=== PATIENT | female | born 1990 | race Caucasian/White ===

== ENCOUNTER 2017-07-30 13:26 | Emergency (ER) | payer OTHER ==
[2017-07-30 13:36] VITALS: BP 126/65; PULSE 84; RESP 16; TEMP 97; O2SAT 100
[2017-07-30] MEDS ORDERED: DiphenhydrAMINE 50 mg/ml Inj IM STA (13:51)
--- NOTE | 2017-07-30 13:53 | ED PDOC ---
HPI: Allergic Reaction Time Seen by Provider: 07/30/17 13:40 Chief Complaint (Nursing): Allergic Reaction Chief Complaint (Provider): Allergic Reaction History Per: Patient History/Exam Limitations: no limitations Onset/Duration Of Symptoms: Hrs (since last night) Current Symptoms Are (Timing): Better Possible Cause: Food Associated Symptoms: Skin Rash, Swelling, Itching, Redness Home/EMS Treatment: Benadryl, Other (Risa) Additional Complaint(s): 27 year old female presents to ED with complaints of a rash since last night and denies any past medical history. Describes rash as diffuse, erythematous, pruritic, and present throughout her body. Notes that she then took Risa, went to sleep, and saw improvement in her rash the next morning. (+) minimal swelling to lower lip. (-) throat swelling, SOB, previous anaphylactic reaction , or fever. Patient states she is currently taking minocycline x10 days for acne and has had no reactions to tetracyclines in the past. Patient further notes that she had peppermint for the first time x15 minutes prior to noticing the rash. Patient notes taking Benadryl 25mg [employer] with added improvement. PCP: None Past Medical History Reviewed: Historical Data, Nursing Documentation, Vital Signs Vital Signs: Last Vital Signs Temp 97.0 F L 07/30/17 13:29 Pulse 84 07/30/17 13:29 Resp 16 07/30/17 13:29 BP 126/65 07/30/17 13:29 Pulse Ox 100 07/30/17 13:29 - Medical History PMH: No Chronic Diseases - Family History Family History: States: No Known Family Hx - Living Arrangements Living Arrangements: With Friends/Others - Social History Drugs: Denies - Home Medications Home Medications: Ambulatory Orders Medication Instructions Recorded predniSONE [Prednisone] 2 tab PO DAILY #8 tab 07/30/17 - Allergies Allergies/Adverse Reactions: Allergies Allergy/AdvReac Type Severity Reaction Status Date / Time No Known Allergies Allergy Verified 07/30/17 13:29 Review of Systems ROS Statement: Except As Marked, All Systems Reviewed And Found Negative Constitutional: Negative for: Fever ENT: Positive for: Other (swelling to lower lip). Negative for: Throat Swelling Respiratory: Negative for: Shortness of Breath Skin: Positive for: Rash Physical Exam - Reviewed Nursing Documentation Reviewed: Yes Vital Signs Reviewed: Yes - Physical Exam Appears: Positive for: Non-toxic, No Acute Distress Skin: Positive for: Warm, Dry, Rash (Scattered mild urticaria with blanching). Negative for: Normal Color ENT: Positive for: Normal ENT Inspection, Other ((+) minimal swelling to right lower lip. (-) no uvular edema) Neck: Positive for: Normal Respiratory: Positive for: Normal Breath Sounds. Negative for: Respiratory Distress Neurologic/Psych: Positive for: Alert, Oriented - ECG O2 Sat by Pulse Oximetry: 100 (RA) Pulse Ox Interpretation: Normal Disposition - Clinical Impression Clinical Impression: Allergic reaction - Patient ED Disposition Is Patient to be Admitted: No - Disposition Referrals: [facility] [Outside] Disposition: Routine/Home Disposition Time: 13:52 Condition: STABLE Additional Instructions: FOLLOW UP WITH [facility] FOR ALLERGY TESTING. Prescriptions: predniSONE [Prednisone] 2 tab PO DAILY #8 tab Instructions: Urticaria (ED) Forms: [employer]ihuishou (Cameroonian) Print Language: KYRGYZ Medical Decision Making Medical Decision Makin Initial impression: urticaria Initial plan: * Benadryl 25mg IM * Prednisone 40mg PO Patient was advised to avoid peppermint. If rash continues, patient advised to stop taking minocycline. Scribe Attestation: Documented by Herminia Gan, acting as a scribe for Memo Treviño PA-C. Provider Scribe Attestation: All medical record entries made by the Scribe were at my direction and personally dictated by me. I have reviewed the chart and agree that the record accurately reflects my personal performance of the history, physical exam, medical decision making, and the department course for this patient. I have also personally directed, reviewed, and agree with the discharge instructions and disposition.
[2017-07-30] MEDS ORDERED: DiphenhydrAMINE 50 mg/ml Inj ONE (14:21)
== END 2017-07-30 15:03 | disposition home or self-care (01) ==
LOC: H.ER 13:26
DX: L50.9 Urticaria, unspecified (principal)
CPT/HCPCS: 96372; 99283; J1200

== ENCOUNTER 2017-08-01 11:48 | Emergency (ER) | payer OTHER ==
[2017-08-01 11:57] VITALS: RESP 18; TEMP 98.3; O2SAT 100
[2017-08-01] MEDS ORDERED: Sodium Chloride 0.9% 1,000 ML IV STA (12:08)
[2017-08-01] MEDS ORDERED: DiphenhydrAMINE 50 mg/ml Inj IVP STA (12:09)
[2017-08-01] MEDS ORDERED: DiphenhydrAMINE 50 mg/ml Inj ONE (12:32)
--- NOTE | 2017-08-01 12:35 | ED PDOC ---
HPI: Allergic Reaction Time Seen by Provider: 08/01/17 11:59 Chief Complaint (Nursing): Allergic Reaction Chief Complaint (Provider): Allergic Reaction History Per: Patient History/Exam Limitations: no limitations Onset/Duration Of Symptoms: Days (x2 weeks) Current Symptoms Are (Timing): Still Present Additional Complaint(s): 27 y/o female presents to the emergency department with a complaint of an itchy rash to the face, arms, legs, abdomen, and torso x2 days. Patient was seen here about 2 days ago and treated with prednisone and Benadryl with temporary improvement with reoccurrence. Denies tightness of the throat or shortness of breath. Past Medical History Reviewed: Historical Data, Nursing Documentation, Vital Signs Vital Signs: Last Vital Signs Temp 98.3 F 08/01/17 11:53 Pulse 109 H 08/01/17 11:53 Resp 18 08/01/17 11:53 BP 106/44 L 08/01/17 11:53 Pulse Ox 100 08/01/17 11:53 - Medical History PMH: No Chronic Diseases - Surgical History Surgical History: No Surg Hx - Family History Family History: States: Unknown Family Hx - Social History Current smoker - smoking cessation education provided: No Alcohol: None Drugs: Denies - Home Medications Home Medications: Ambulatory Orders Medication Instructions Recorded predniSONE [Prednisone] 2 tab PO DAILY #8 tab 07/30/17 Cetirizine HCl [Zyrtec] 10 mg PO DAILY #10 capsule 08/01/17 Famotidine [Pepcid] 20 mg PO Q12 #20 tab 08/01/17 predniSONE [Prednisone] 20 mg PO TID #9 tab 08/01/17 - Allergies Allergies/Adverse Reactions: Allergies Allergy/AdvReac Type Severity Reaction Status Date / Time No Known Allergies Allergy Verified 07/30/17 13:29 Review of Systems ROS Statement: Except As Marked, All Systems Reviewed And Found Negative ENT: Negative for: Other (Throat tightness) Respiratory: Negative for: Shortness of Breath Skin: Positive for: Rash (Itchy naveen to the face, legs, arms, abdomen, and torso ) Physical Exam - Reviewed Nursing Documentation Reviewed: Yes Vital Signs Reviewed: Yes - Physical Exam Appears: Positive for: Non-toxic, No Acute Distress Head Exam: Positive for: ATRAUMATIC, NORMAL INSPECTION, NORMOCEPHALIC Skin: Positive for: Warm, Dry, Rash (Erythematous confluent rash face hands arms leg, back, and spares palm) Eye Exam: Positive for: EOMI, Periorbital swelling (To the right side). Negative for: Normal appearance ENT: Positive for: Normal ENT Inspection. Negative for: Other (No throat swelling or stridor) Neck: Positive for: Normal, Supple Cardiovascular/Chest: Positive for: Regular Rate, Rhythm. Negative for: Murmur Respiratory: Positive for: Normal Breath Sounds. Negative for: Accessory Muscle Use, Wheezing, Respiratory Distress Neurologic/Psych: Positive for: Alert, Oriented (x3) - ECG O2 Sat by Pulse Oximetry: 100 (RA) Pulse Ox Interpretation: Normal - Progress Re-evaluation Time: 13:59 Condition: Improved (Rash fading, no itching, no SOB) - Critical Care Notes:: Time: 12:08 Initial impression: Allergic reaction Initial plan: --Benadryl 50 mg IVP --Pepcid 20 mg IVP --Methylprednisolone 125 mg IVP --Sodium Chloride 1L IV 150 mls/hr --Reevaluation Scribe Attestation: Documented by Oneyda Kent, acting as a scribe for Kai Alcala MD. Provider Scribe Attestation: All medical record entries made by the Scribe were at my direction and personally dictated by me. I have reviewed the chart and agree that the record accurately reflects my personal performance of the history, physical exam, medical decision making, and the department course for this patient. I have also personally directed, reviewed, and agree with the discharge instructions and disposition. Disposition - Clinical Impression Clinical Impression: Allergic reaction - Patient ED Disposition Is Patient to be Admitted: No Counseled Patient/Family Regarding: Diagnosis, Need For Followup, Rx Given - Disposition Disposition: Routine/Home Disposition Time: 13:59 Condition: FAIR Prescriptions: Cetirizine HCl [Zyrtec] 10 mg PO DAILY #10 capsule Famotidine [Pepcid] 20 mg PO Q12 #20 tab predniSONE [Prednisone] 20 mg PO TID #9 tab Instructions: General Allergic Reaction (ED) Forms: Hometapper (Portuguese)
[2017-08-01 16:30] VITALS: BP 100/60; PULSE 79
== END 2017-08-01 16:25 | disposition home or self-care (01) ==
LOC: H.ER 11:48
DX: T78.40XA Allergy, unspecified, initial encounter (principal)
CPT/HCPCS: 81025; 96374; 96375; 99283; J1200; J2930; J7040